=== PATIENT | male | born 1950 | race Caucasian/White ===

== ENCOUNTER → 2019-04-24 | Outpatient (CLI) | payer MEDICARE ==
[2019-04-24 10:39] LABS: African American GFR (CKD) >90 (>60 ml/min/1.73 sqM); Blood Urea Nitrogen 15 mg/dL (9-20); Non-African American GFR(CKD) >90 (>60 ml/min/1.73 sqM)
--- NOTE | 2019-04-24 12:52 | CT ---
EXAMINATION TYPE: CT pelvis w con DATE OF EXAM: 04/24/2019 COMPARISON: None. HISTORY: Prostate Cancer CT DLP: 1239 mGycm Automated exposure control for dose reduction was used. CONTRAST: Performed with IV Contrast, patient injected with 100 ml mL of Isovue 300. FINDINGS: Prostate gland normal in size with some central calcifications. Seminal vesicles appear within normal limits. No adjacent adenopathy seen. Bladder not greatly distended. No suspicious intraluminal mass or calculus. Oral contrast has not reached distal colon level. Few scattered diverticula in the left and sigmoid c olon. No suspicious small or large bowel dilatation. Low-lying cecum into the right pelvis with contr ast filled normal size appendix ascending from the cecal base. Subcentimeter simple appearing thin-wa lled cyst laterally lower pole of right kidney on axial series 5 image 8. There is moderate to severe mixed plaque in the abdominal aorta extending into iliac branch vessels. There is ectasia or aneurysmal change of the right and left common iliac arteries measuring up to 2.3 and 2.4 cm bilaterally on the left coronal image 57 and on the right coronal image 53. No significan t focal stenosis in common or external iliac arteries bilaterally. Osseous structures are demineralized. Some moderate anterior and lateral spurring in the mid lumbar s pine. Posterior left paracentral disc herniation L3-L4 level effaces the anterior thecal sac sagittal image 71. Mild/moderate narrowing and mild spurring of both hip joints. IMPRESSION: Metastatic cancer is not identified.
--- NOTE | 2019-04-24 13:48 | NM ---
EXAMINATION TYPE: NM bone scan whole body DATE OF EXAM: 04/24/2019 COMPARISON: CT pelvis 04/24/2019 HISTORY: Prostate cancer Delayed whole-body scanning was performed following the injection of 24.8 mCi Tc 99m MDP. Images acq uired 3 hours post injection. FINDINGS: Uptake involving the shoulders is nonspecific but typical degenerative change. Nonspecific uptake inv olving the right ankle and foot likely post arthritic or on the basis of remote trauma. There is subtle curvature of the spine with faint increased uptake in the thoracic region likely dege nerative. Abnormal uptake involving the mandible likely in the basis of periodontal disease. IMPRESSION: 1. Nonspecific uptake with no diagnostic evidence of metastases.
== END | disposition home or self-care (01) ==
LOC: RADNMMAIN 09:33
PROVIDERS: ATTEND Urology
DX: C61 Malignant neoplasm of prostate (principal)
CPT/HCPCS: 82565; 84520; 72193; 36415; 78306; A9503; Q9967

== ENCOUNTER 2019-05-06 15:55 | Inpatient (IN) | payer MEDICARE ==
[2019-05-06 16:06] LABS: Glucose,Whole Blood 134 mg/dL (75-99)
--- NOTE | 2019-05-06 16:29 | ED ---
General Adult HPI - General Chief complaint: Neuro Symptoms/Deficit Stated complaint: poss stroke Time Seen by Provider: 05/06/19 16:16 Source: patient, RN notes reviewed Mode of arrival: ambulatory Limitations: no limitations - History of Present Illness Initial comments: Patient is a pleasant 68-year-old male presenting to the emergency Department with complaints of speech problems. Onset of symptoms is not exactly known. Last known well was sometimes around noon. Symptoms were noticed around an hour or so ago. Patient had slurred speech and some confusion. Patient states he did not really notice symptoms much. Symptoms were more noticed by family. Symptoms have essentially resolved at this time. No history of similar symptoms previously. No difficulty walking or extremity weakness. - Related Data Home Medications Medication Instructions Recorded Confirmed Atorvastatin [Lipitor] 40 mg PO HS 05/06/19 05/06/19 Glimepiride [Amaryl] 2 mg PO BID 05/06/19 05/06/19 Pioglitazone [Actos] 30 mg PO DAILY 05/06/19 05/06/19 metFORMIN HCL ER [Glucophage Xr] 500 mg PO BID 05/06/19 05/06/19 Allergies Allergy/AdvReac Type Severity Reaction Status Date / Time No Known Allergies Allergy Unverified 05/06/19 16:45 Review of Systems ROS Statement: Those systems with pertinent positive or pertinent negative responses have been documented in the HPI. ROS Other: All systems not noted in ROS Statement are negative. Constitutional: Denies: fever Eyes: Denies: eye pain ENT: Denies: ear pain Respiratory: Denies: cough Cardiovascular: Denies: chest pain Endocrine: Denies: fatigue Gastrointestinal: Denies: abdominal pain Genitourinary: Denies: dysuria Musculoskeletal: Denies: back pain Skin: Denies: rash Neurological: Reports: as per HPI. Denies: headache, weakness Past Medical History Past Medical History: No Reported History History of Any Multi-Drug Resistant Organisms: None Reported Past Surgical History: No Surgical Hx Reported Past Psychological History: No Psychological Hx Reported Smoking Status: Never smoker Past Alcohol Use History: None Reported Past Drug Use History: None Reported General Exam Limitations: no limitations General appearance: alert, in no apparent distress Head exam: Present: normocephalic Eye exam: Present: normal appearance, PERRL, EOMI ENT exam: Present: normal oropharynx Neck exam: Present: normal inspection Respiratory exam: Present: normal lung sounds bilaterally Cardiovascular Exam: Present: regular rate, normal rhythm GI/Abdominal exam: Present: soft. Absent: tenderness Extremities exam: Present: normal inspection. Absent: pedal edema, calf tenderness Neurological exam: Present: alert, oriented X3, CN II-XII intact. Absent: motor sensory deficit Expanded Neurological exam: Present: protecting the airway Patient oriented to: Present: person, place, time Speech: Present: fluid speech Cranial nerves: EOM's Intact: Normal, Facial Sensation: Normal Sensory exam: Upper Extremity Light Touch: Normal, Lower Extremity Light Touch: Normal Motor strength exam: RUE: 5, LUE: 5, RLE: 5, LLE: 5 Eye Response: (4) open spontaneously Motor Response: (6) obeys commands Verbal Response: (5) oriented Psychiatric exam: Present: normal affect, normal mood Skin exam: Present: normal color Course Vital Signs 05/06/19 05/06/19 16:06 16:14 Temperature 97.8 F Pulse Rate 75 78 Respiratory 18 18 Rate Blood Pressure 161/80 161/80 O2 Sat by Pulse 99 97 Oximetry EKG Findings - EKG Comments: EKG Findings:: Normal sinus rhythm at 76. AK 180. QRS 106. QT 398. QTC 447. Normal axis. Normal QRS. Borderline lateral ST depression. Medical Decision Making - Medical Decision Making Case was discussed with Dr. Long, who will admit covering for Dr. Cordon. Patient reevaluated. Patient and family updated. Patient remains symptom-free. - Lab Data Result diagrams: 05/06/19 16:28 Lab Results 05/06/19 05/06/19 05/06/19 Range/Units 16:04 16:28 16:28 Sodium 139 (137-145) mmol/L Potassium 4.6 (3.5-5.1) mmol/L Chloride 105 (98-107) mmol/L Carbon Dioxide 26 (22-30) mmol/L Anion Gap 8 mmol/L BUN 18 (9-20) mg/dL Creatinine 0.58 L (0.66-1.25) mg/dL Est GFR (CKD-EPI)AfAm >90 (>60 ml/min/1.73 sqM) Est GFR (CKD-EPI)NonAf >90 (>60 ml/min/1.73 sqM) Glucose 124 H (74-99) mg/dL POC Glucose (mg/dL) 134 H (75-99) mg/dL POC Glu Mounter Smoking Pipe ID Carlos Walters Calcium 9.4 (8.4-10.2) mg/dL Total Bilirubin 0.5 (0.2-1.3) mg/dL AST 21 (17-59) U/L ALT 11 (4-49) U/L Alkaline Phosphatase 80 (38-126) U/L Troponin I 0.118 H* (0.000-0.034) ng/mL Total Protein 6.9 (6.3-8.2) g/dL Albumin 4.3 (3.5-5.0) g/dL - Radiology Data Radiology results: report reviewed (Computed tomography scan the brain shows no acute process) Disposition Clinical Impression: Transient cerebral ischemia Disposition: ADMITTED IP TO THIS HOSP Is patient prescribed a controlled substance at d/c from ED?: No Referrals: Shiv Cordon MD [Primary Care Provider] - 1-2 days Decision Time: 17:12
[2019-05-06 16:47] LABS: Basophils % (A) 0 %; Eosinophils # (A) 0.1 k/uL (0-0.7); Eosinophils % (A) 2 %; HCT 44.2 % (39.0-53.0); HGB 14.4 gm/dL (13.0-17.5); Lymphocytes # (A) 1.9 k/uL (1.0-4.8); Lymphocytes % (A) 28 %; MCH 30.7 pg (25.0-35.0); MCHC 32.5 g/dL (31.0-37.0); MCV 94.2 fL (80.0-100.0); Mean Platelet Volume 8.4; Monocytes # (A) 0.4 k/uL (0-1.0); Monocytes % (A) 6 %; Neutrophils % (A) 60 %; Platelet Count 270 k/uL (150-450); RDW 13.2 % (11.5-15.5); WBC 6.7 k/uL (3.8-10.6)
[2019-05-06 16:50] LABS: ALT 11 U/L (4-49); AST 21 U/L (17-59); African American GFR (CKD) >90 (>60 ml/min/1.73 sqM); Albumin 4.3 g/dL (3.5-5.0); Alkaline Phosphatase 80 U/L (38-126); Anion Gap 8 mmol/L; Blood Urea Nitrogen 18 mg/dL (9-20); Calcium 9.4 mg/dL (8.4-10.2); Carbon Dioxide 26 mmol/L (22-30); Chloride 105 mmol/L (98-107); Glucose 124 mg/dL (74-99); Non-African American GFR(CKD) >90 (>60 ml/min/1.73 sqM); Potassium 4.6 mmol/L (3.5-5.1); Sodium 139 mmol/L (137-145); Total Bilirubin 0.5 mg/dL (0.2-1.3); Total Protein 6.9 g/dL (6.3-8.2)
--- NOTE | 2019-05-06 16:58 | CT ---
EXAMINATION TYPE: CT brain wo con for TPA DATE OF EXAM: 05/06/2019 COMPARISON: None HISTORY: Slurred speech. CT DLP: 1160.6 mGycm Automated exposure control for dose reduction was used. There is some cerebral cortical atrophy. There is no mass effect nor midline shift. There is no sign of intracranial hemorrhage. The calvarium is intact. There is 2 cm mucous retention cyst in the sphen oid sinus. IMPRESSION: Mild atrophy. No acute intracranial abnormality.
[2019-05-06 17:01] LABS: Partial Thromboplastin Time 22.1 sec (22.0-30.0); Prothrombin Time 10.7 sec (9.0-12.0)
[2019-05-06] MEDS ORDERED: ASPIRIN 325 MG TAB PO STA (17:09)
[2019-05-06] MEDS ORDERED: ATORVASTATIN 40 MG TAB PO SCH (17:15)
--- NOTE | 2019-05-06 17:41 | CT ---
EXAMINATION TYPE: CT angio head neck DATE OF EXAM: 05/06/2019 COMPARISON: None HISTORY: Slurred speech CT DLP: 575.1 mGycm Automated exposure control for dose reduction was used. CONTRAST: Performed with IV Contrast, patient injected with 65 mL of Isovue 370. There are 3-D post processed images. There is normal branching pattern of the great vessels on the aortic arch. Aortic arch measures up to 3.8 cm in diameter. There is bilateral arterial flow in the subclavian arteries. There is arterial f low in the common internal and external carotid arteries bilaterally. There is mild plaque formation at the carotid artery bifurcations. There is stenosis less than 15%. There is arterial flow in both v ertebral arteries. There is no evidence of carotid or vertebral artery aneurysm or dissection. There is arterial flow in the vertebrobasilar artery system. There is arterial flow in the anterior m iddle and posterior cerebral arteries. There is no sign of intracranial aneurysm or neovascularity. T here is normal contrast opacification of the venous sinuses. I see no evidence of intracranial hemody namic arterial stenosis. IMPRESSION: Negative exam. No evidence of any hemodynamic stenosis of the intracranial arteries or the carotid an d vertebral arteries.
--- NOTE | 2019-05-06 17:46 | XR ---
EXAMINATION TYPE: XR chest 2V DATE OF EXAM: 05/06/2019 COMPARISON: 12/28/2008 HISTORY: Altered mental status. Weakness TECHNIQUE: FINDINGS: Heart is normal. There are sternal wires. There is slight blunting of the posterior costophrenic angl es.. There is no heart failure. Bony thorax is intact. There are no hilar masses. IMPRESSION: Small pleural effusions are improved compared to old exam. Normal heart. No heart failure seen.
[2019-05-06] MEDS: SODIUM CHLORIDE 0.9% 1,000 ML IV SCH (17:55)
[2019-05-07] MEDS: SODIUM CHLORIDE 0.9% 1,000 ML IV SCH ×2 (04:39→12:45)
[2019-05-07 05:30] LABS: Cholesterol 139 mg/dL (<200); HDL Cholesterol 35 mg/dL (40-60); LDL Cholesterol,Calculated 79 mg/dL (0-99); Triglycerides 124 mg/dL (<150)
[2019-05-07] MEDS ORDERED: ASPIRIN 325 MG TAB PO SCH (09:00)
--- NOTE | 2019-05-07 11:00 | ECHOF ---
Referral Reason:Thrombus MEASUREMENTS -------- HEIGHT: 152.4 cm WEIGHT: 86.2 kg BP: RVIDd: 3.5 cm (< 3.3) IVSd: 1.4 cm (0.6 - 1.1) LVIDd: 5.9 cm (3.9 - 5.3) LVPWd: 1.6 cm (0.6 - 1.1) IVSs: 1.6 cm LVIDs: 4.8 cm LVPWs: 1.7 cm LA Diam: 4.9 cm (2.7 - 3.8) LAESV Index (A-L): 40.85 ml/m Ao Diam: 4.2 cm (2.0 - 3.7) AV Cusp: 1.6 cm (1.5 - 2.6) LA Diam: 5.2 cm (2.7 - 3.8) MV EXCURSION: 25.770 mm (> 18.000) MV EF SLOPE: 102 mm/s (70 - 150) EPSS: 1.4 cm MV E Aiden: 0.86 m/s MV DecT: 146 ms MV A Aiden: 0.50 m/s MV E/A Ratio: 1.72 RAP: 5.00 mmHg RVSP: 14.77 mmHg FINDINGS -------- Sinus rhythm. This was a techncally difficult study with suboptimal views, , Lumason utilized for enhancement of im ages. The left ventricular size is normal. There is mild concentric left ventricular hypertrophy. Overa ll left ventricular systolic function is moderate-severely impaired with, an EF between 30 - 35 %. Inferior basal Hypokinesis Septal Hypokinesis The right ventricle is normal in size. The left atrium is markedly dilated. LA is severely dilated >40 ml/m2 The right atrial size is normal. 5.0mg OF Lumason UTLIZED: 2 OR MORE WALL SEGMENTS NOT VISUALIZED. There is mild aortic valve sclerosis. There is no evidence of aortic regurgitation. Mild mitral annular calcification present. Mild mitral regurgitation is present. Mild tricuspid regurgitation present. Right ventricular systolic pressure is normal at < 35 mmHg. There is no evidence of pulmonary hypertension. Trace/mild (physiologic) pulmonic regurgitation. The aortic root size is normal. There is no pericardial effusion. CONCLUSIONS -------- 1. Sinus rhythm. 2. This was a techncally difficult study with suboptimal views, , Lumason utilized for enhancement of images. 3. The left ventricular size is normal. 4. There is mild concentric left ventricular hypertrophy. 5. Overall left ventricular systolic function is moderate-severely impaired with, an EF between 30 - 35 %. 6. Inferior basal Hypokinesis 7. Septal Hypokinesis 8. The right ventricle is normal in size. 9. The left atrium is markedly dilated. 10. LA is severely dilated >40 ml/m2 11. The right atrial size is normal. 12. 5.0mg OF Lumason UTLIZED: 2 OR MORE WALL SEGMENTS NOT VISUALIZED. 13. There is mild aortic valve sclerosis. 14. Mild mitral annular calcification present. 15. Mild mitral regurgitation is present. 16. Mild tricuspid regurgitation present. 17. Right ventricular systolic pressure is normal at < 35 mmHg. 18. There is no evidence of pulmonary hypertension. 19. Trace/mild (physiologic) pulmonic regurgitation. 20. The aortic root size is normal. 21. There is no pericardial effusion. CR[employer]LING PRESS OPERATOR: Sonya Fernández RDCS
--- NOTE | 2019-05-07 11:40 | CONS ---
CONSULTATION Mr. Sampson is a 68-year-old gentleman who is seen for cardiac evaluations. Patient's medical records reviewed. Patient came to the hospital with a history of slurred speech and confusion. He did not really notice much symptoms, but then symptoms were noticed by family and by the time he came to the emergency room, the patient's symptoms were resolved. He did not have any headache, nausea, vomiting or seizures. Patient has a known history of coronary artery disease with a prior history of a bypass about 10 years ago, history of diabetes. Patient does not follow any cardiology. He did not have any stress test. He is physically and functionally independent and denies any chest pain with routine activity. PAST MEDICAL HISTORY: Includes a history of coronary artery bypass surgery. SOCIAL HISTORY: Patient is a never smoker. In the emergency room, patient's blood pressure was mildly elevated. PHYSICAL EXAMINATION: At present reveals a 68-year-old gentleman who does not appear to be in any acute distress. Patient's blood pressure is 128/65 mmHg, heart rate is 70 per minute. HEENT examination is negative. Neck is supple. There is no increase in jugular venous pressure. Both the carotid pulses are felt. There is no bruit. Chest is symmetrical. Heart, the PMI is not felt. First and second heart sounds are normal. Lungs are clinically clear to auscultation and percussion. Abdomen is negative. Extremities, peripheral pulsations are 2+. EKG shows normal sinus rhythm with mild ST changes in the lateral leads. Patient's 3 troponins are identical suggestive of chronic myocardial injury without any definite evidence of acute coronary syndrome. Patient's echocardiogram reveals a septal and apical and inferior wall hypokinesia with ejection fraction of 30%-35%. Patient's clinical access shows one episode of nonsustained ventricular tachycardia. FINAL IMPRESSION: 1. This patient has presented with the symptoms suggestive for TIA. Patient's CT scan and carotid angiogram were normal. 2. Patient has a stable CAD with a prior history of coronary artery bypass surgery. Echocardiogram is suggestive of ischemic cardiomyopathy with ejection fraction of 30%-35%. The patient had 1 run of nonsustained VT. There is no evidence of acute coronary syndrome. RECOMMENDATIONS: Patient will await for neuro evaluation. If the MRI shows any cortical ischemic changes, we will do HANNAH to rule out any cardiac source of emboli. I will add Entresto 24/26 mg twice a day and metoprolol succinate 25 mg daily. Patient should be evaluated with a stress test as outpatient and follow severely with echocardiogram to see if there is any improvement in the LV systolic function. JENA / IVANIA: [id number] /
[2019-05-07 11:46] LABS: Glucose,Whole Blood 110 mg/dL (75-99)
[2019-05-07] MEDS: INSULIN ASPART (NovoLOG) 100 UNIT/ML VIAL SQ SCH ×3 (12:02→21:13)
[2019-05-07] MEDS: SACUBITRIL/VALSARTAN 24 MG-26 MG TABLET PO SCH ×2 (12:05→20:20)
[2019-05-07] MEDS: METOPROLOL SUCCINATE (ER) 25 MG TAB.ER.24H PO SCH (12:05)
--- NOTE | 2019-05-07 13:36 | P.CNNES ---
History of Present Illness Consult date: 05/07/19 Requesting physician: Audi Caraballo Reason for Consult: TIA History of Present Illness: Patient is a 68-year-old male arrived to the hospital yesterday at 3:55 PM for admitted to the hospital for speech problems. Patient states that yesterday at around noon, he had an episode of slurring words. He states that it was not happening all the time. After he was speaking a sentence, and the last word world "screw up". He described it as could not think the last word of the sentence. He knew what it was but he could not see it out. It at lasted for less than an hour. There was no associated numbness tingling focal weakness facial droop, visual issues, problem with balance or headache. He came to ER. When he arrived his blood pressure was 161/80, pulse rate 75 temperature 97.8. Patient states his symptoms have all resolved. He never had any history of TIA or CVA. I tried to call the patient's son several times, but he did not picker packer the phone. Left voicemail to call me back, to get more collateral history. CT head showed mild atrophy, no acute change. EKG with normal sinus rhythm, ST and T-wave abnormality, consider inferolateral ischemia. CTA of head and neck showed no hemodynamically significant stenosis of the intracranial arteries or the carotid and vertebral arteries. Chest x-ray showed small pleural effusions. 2-D echo showed sinus rhythm. EF is 30-35%. Inferior basal hypokinesis. Septal hypokinesis. Left atrium is moderately dilated. The aortic root size is normal. Patient's troponin are mildly elevated. Patient's total cholesterol is 139, LDL 79, HDL 35 and triglycerides 124. Patient has history of hypertension, diabetes for the last 10+ years and hyperlipidemia. Patient never smoked tobacco but he does smoke pot every day. Review of Systems As above in detail. Otherwise all 14 point review of systems unremarkable. Past Medical History Past Medical History: Asthma, Cancer, CVA/TIA, Diabetes Mellitus, Deep Vein Thrombosis (DVT), Eye Disorder, Hypertension, Myocardial Infarction ([place]), Prostate Disorder Additional Past Medical History / Comment(s): Pt states, "I had a heart attack about 12 years ago." Prostate cancer diagnosed 03/2019, bilateral cataract surgery 2018, Last Myocardial Infarction Date:: 2007 History of Any Multi-Drug Resistant Organisms: None Reported Past Surgical History: Adenoidectomy, Coronary Bypass/CABG, Heart Catheterization, Tonsillectomy Past Anesthesia/Blood Transfusion Reactions: No Reported Reaction Past Psychological History: No Psychological Hx Reported Smoking Status: Former smoker Past Alcohol Use History: None Reported Past Drug Use History: Marijuana Additional Drug Use History / Comment(s): Pt states that he "smoke marijuana daily" Unable to determine how much marijuana is smoked during the day. - Past Family History Father Family Medical History: Myocardial Infarction ([place]) Additional Family Medical History / Comment(s): Father at 49 of an [place]. Mother Family Medical History: Myocardial Infarction ([place]) Additional Family Medical History / Comment(s): Mother at 49 of a [place]. Sister(s) Family Medical History: Cancer Additional Family Medical History / Comment(s): Pt states sister had breast ca ncer at 50. Medications and Allergies Home Medications Medication Instructions Recorded Confirmed Type Atorvastatin [Lipitor] 40 mg PO HS 05/06/19 05/06/19 History Glimepiride [Amaryl] 2 mg PO BID 05/06/19 05/06/19 History Pioglitazone [Actos] 30 mg PO DAILY 05/06/19 05/06/19 History metFORMIN HCL ER [Glucophage Xr] 500 mg PO BID 05/06/19 05/06/19 History Allergies Allergy/AdvReac Type Severity Reaction Status Date / Time No Known Allergies Allergy Unverified 05/06/19 16:45 Physical Examination - Vital Signs Vital Signs: Vital Signs Temp Pulse Pulse Resp BP BP Pulse Ox 05/07/19 08:00 98.0 F 69 20 129/72 96 05/07/19 04:00 98.5 F 69 16 128/65 95 05/07/19 00:00 98.5 F 69 14 126/60 97 05/06/19 22:11 98.3 F 78 18 152/84 99 05/06/19 22:00 98.3 F 78 18 152/84 99 05/06/19 21:05 70 18 148/84 98 05/06/19 17:52 70 18 151/80 97 05/06/19 16:14 78 18 161/80 97 05/06/19 16:06 97.8 F 75 18 161/80 99 Intake and Output 05/06/19 05/07/19 05/07/19 22:59 06:59 14:59 Intake Total 450 Output Total 240 0 Balance 210 0 Intake: Intake, IV Titration 450 Amount Sodium Chloride 0.9% 1, 450 000 ml @ 100 mls/hr IV . Q10H [facility] Rx#:[id number] Output: Urine 240 0 Other: Voiding Method Toilet Urinal # Voids 1 0 Weight 86.5 kg 86.5 kg On examination patient is an elderly male, in no distress. Patient is alert and awake fully oriented. Speech and leg which functions are normal. Attention and concentration fund of knowledge is adequate. On cranial nerve examination pupils are round and reacting to light, visual weems are full, face is symmetric, tongue protrudes in midline. Palatal elevation and sensation norm al muscle strength is normal in the arms and legs distally and proximally reflexes are diminished and plantars downgoing. Sensory touch is equal with no neglect. No ataxia for [id number] testing, tone and bulk of muscles normal. No carotid bruit or murmur, peripheral pulses present. Results - Laboratory Findings CBC and BMP: 05/06/19 16:28 05/06/19 16:28 Abnormal Lab Findings: Abnormal Labs 05/06/19 05/06/19 05/06/19 16:04 16:28 16:28 Creatinine 0.58 L Glucose 124 H POC Glucose (mg/dL) 134 H Troponin I 0.118 H* HDL Cholesterol 05/06/19 05/07/19 05/07/19 22:18 04:48 04:48 Creatinine Glucose POC Glucose (mg/dL) Troponin I 0.139 H* 0.124 H* HDL Cholesterol 35 L 05/07/19 11:33 Creatinine Glucose POC Glucose (mg/dL) 110 H Troponin I HDL Cholesterol Assessment and Plan Assessment: * 68-year-old male admitted with an episode of speech difficulty lasting for less then one hour, and then resolved. No associated other focal neurological symptoms. Patient's symptoms are somewhat atypical, as he would speak normally, only forgetting the last word of the sentence, which is atypical for TIA to manifest with symptoms for the "last word of sentence". Tried to call patient's son for collateral history, but was not available. * Diabetes * Hypertension * Abnormal 2-D echo with CHF, left atrial dilation. Elevated cardiac enzymes. Rule out cardioembolic source. * THC user. Plan: * Patient has been started on aspirin 81 mg daily and Lipitor 80 mg. * Agree with checking HANNAH to rule out any embolic source. * Continue telemetry monitoring to rule out paroxysmal atrial fibrillation. * Discussed with cardiology team in detail. * MRI of the brain will not change the management. Patient still needs workup for TIA.
--- NOTE | 2019-05-07 14:51 | P.HPIM ---
History of Present Illness H&P Date: 05/07/19 Chief Complaint: slurred speech On this is a 68-year-old male patient of Dr. Cordon with past medical history of diabetes mellitus type 2, hyperlipidemia, DVT, myocardial infarction at age 58 status post 4 vessel CABG, active daily marijuana use, prostate cancer diagnosed March 2019, no history of CVA nor TIA. Patient gives history that he was watching TV didn't realize he was driving trouble speaking until his son called him on the phone and he could hardly talk to him. He also had some mild confusion. Symptoms lasted until he arrived to the hospital. He states he has been sick for about 3 weeks with on and off diarrhea. His last episode was yesterday. He denies having any chest pain, no shortness of breath, no dizziness or lightheadedness. No history of obstructive sleep apnea. Patient came into [facility] emergency center for evaluation. CAT scan of the head showed mild atrophy, no acute change. EKG was in normal sinus rhythm with ST-T wave abnormality consider inferior lateral ischemia. CT of the head and neck showed no hemodynamically significant stenosis of the intracranial arteries are carotid vertebral arteries. Chest x-ray showed small pleural effusions. Echocardiogram reveals EF of 30-35%, inferior basal h ypokinesia, septal hypokinesia, left atrium is moderately dilated. Cholesterol 139, LDL 79, HDL 35, triglycerides 124. Patient placed on the cardiac stepdown unit and consult in place for neurology and cardiology. Repeat troponins have been 0.139 and 0.124. Review of Systems Constitutional: Denies anorexia, Denies chills, Denies fatigue, Denies fever, Denies lethargy, Denies malaise, Denies poor appetite, Denies weight loss Eyes: denies blurred vision, denies pain Ears, nose, mouth and throat: Denies dental pain, Denies dysphagia, Denies headache, Denies nasal congestion, Denies nasal discharge, Denies sore throat, Denies vertigo Cardiovascular: Denies chest pain, Denies dyspnea on exertion, Denies lightheadedness, Denies shortness of breath, Denies syncope Respiratory: Reports cough, Denies cough with sputum, Denies dyspnea, Denies excessive sputum, Denies hemoptysis, Denies home oxygen, Denies respiratory infections, Denies wheezing Gastrointestinal: Denies abdominal pain, Denies diarrhea, Denies loss of appetite, Denies nausea, Denies vomiting Genitourinary: Denies dysuria, Denies urinary frequency, Denies urinary retention Musculoskeletal: Denies frequent falls, Denies gait dysfunction, Denies muscle weakness, Denies myalgias Integumentary: Denies pruritus, Denies rash, Denies wounds Neurological: Reports change in mentation, Reports change in speech, Denies headaches, Denies memory loss, Denies seizures, Denies syncope, Denies vertigo, Denies weakness Psychiatric: Denies anxiety, Denies depression Endocrine: Denies fatigue, Denies weight change Past Medical History Past Medical History: Asthma, Cancer, CVA/TIA, Diabetes Mellitus, Deep Vein Thrombosis (DVT), Eye Disorder, Hypertension, Myocardial Infarction (OK), Prostate Disorder Additional Past Medical History / Comment(s): Pt states, "I had a heart attack about 12 years ago." Prostate cancer diagnosed 03/2019, bilateral cataract surgery 2018, Last Myocardial Infarction Date:: 2007 History of Any Multi-Drug Resistant Organisms: None Reported Past Surgical History: Adenoidectomy, Coronary Bypass/CABG, Heart Catheterization, Tonsillectomy Past Anesthesia/Blood Transfusion Reactions: No Reported Reaction Past Psychological History: No Psychological Hx Reported Past Alcohol Use History: None Reported Additional Past Alcohol Use History / Comment(s): Patient states that he only smoked cigarettes as a child. He is smoking marijuana on a daily basis since he was 28 years old. He denies any alcohol use or illicit drug use. Patient lives at home with his son. He does not have a cane, walker, no CPAP, no O2 at home. Past Drug Use History: Marijuana Additional Drug Use History / Comment(s): Pt states that he "smoke marijuana daily" Unable to determine how much marijuana is smoked during the day. - Past Family History Father Family Medical History: Myocardial Infarction ([place]) Additional Family Medical History / Comment(s): Father at 49 of an [place]. Mother Family Medical History: Myocardial Infarction ([place]) Additional Family Medical History / Comment(s): Mother at 59 of a [place]. Sister(s) Family Medical History: Cancer Additional Family Medical History / Comment(s): Pt states sister had breast cancer at 50. Patient has a second sister with no major medical problems. Patient has 2 sons with no major medical problems. He does not have any daughters. Medications and Allergies Home Medications Medication Instructions Recorded Confirmed Type Atorvastatin [Lipitor] 40 mg PO HS 05/06/19 05/06/19 History Glimepiride [Amaryl] 2 mg PO BID 05/06/19 05/06/19 History Pioglitazone [Actos] 30 mg PO DAILY 05/06/19 05/06/19 History metFORMIN HCL ER [Glucophage Xr] 500 mg PO BID 05/06/19 05/06/19 History Allergies Allergy/AdvReac Type Severity Reaction Status Date / Time No Known Allergies Allergy Unverified 05/06/19 16:45 Physical Exam Vitals: Vital Signs Temp Pulse Pulse Resp BP BP Pulse Ox 05/07/19 04:00 98.5 F 69 16 128/65 95 05/07/19 00:00 98.5 F 69 14 126/60 97 05/06/19 22:11 98.3 F 78 18 152/84 99 05/06/19 22:00 98.3 F 78 18 152/84 99 05/06/19 21:05 70 18 148/84 98 05/06/19 17:52 70 18 151/80 97 05/06/19 16:14 78 18 161/80 97 05/06/19 16:06 97.8 F 75 18 161/80 99 Intake and Output 05/06/19 05/07/19 05/07/19 22:59 06:59 14:59 Intake Total 450 Output Total 240 Balance 210 Intake: Intake, IV Titration 450 Amount Sodium Chloride 0.9% 1, 450 000 ml @ 100 mls/hr IV . Q10H [facility] Rx#:[id number] Output: Urine 240 Other: Voiding Method Toilet Urinal # Voids 1 Weight 86.5 kg 86.5 kg Gen: This is a 68-year-old male. Patient is resting in bed and appears to be comfortable and in no acute distress. HEENT: Head is atraumatic, normocephalic. Pupils equal, round. Sclerae is anicteric. NECK: Supple. No JVD. No lymphadenopathy. No thyromegaly. No carotid bruit. LUNGS: Clear to auscultation. No wheezes or rhonchi. No intercostal retractions. HEART: Regular rate and rhythm. No murmur. ABDOMEN: Soft. Bowel sounds are present. No masses. No tenderness. EXTREMITIES: No pedal edema. No calf tenderness. NEUROLOGICAL: Patient is awake, alert and oriented x3. Cranial nerves 2 through 12 are grossly intact. No neglect of the upper extremities. Touch sensation is equal bilateral extremities. Results CBC & Chem 7: 05/06/19 16:28 05/08/19 05:31 Labs: Abnormal Lab Results - Last 24 Hours (Table) 05/06/19 05/06/19 05/06/19 Range/Units 16:04 16:28 16:28 Creatinine 0.58 L (0.66-1.25) mg/dL Glucose 124 H (74-99) mg/dL POC Glucose (mg/dL) 134 H (75-99) mg/dL Troponin I 0.118 H* (0.000-0.034) ng/mL HDL Cholesterol (40-60) mg/dL 05/06/19 05/07/19 05/07/19 Range/Units 22:18 04:48 04:48 Creatinine (0.66-1.25) mg/dL Glucose (74-99) mg/dL POC Glucose (mg/dL) (75-99) mg/dL Troponin I 0.139 H* 0.124 H* (0.000-0.034) ng/mL HDL Cholesterol 35 L (40-60) mg/dL Thrombosis Risk Factor Assmnt - DVT/VTE Prophylaxis DVT/VTE Prophylaxis: Pharmacologic Prophylaxis ordered - Choose All That Apply Any of the Below Risk Factors Present?: Yes Each Factor Represents 1 point: Obesity (BMI >25) Other Risk Factors: Yes Each Risk Factor Represents 2 Points: Age 61-74 years Thrombosis Risk Factor Assessment Total Risk Factor Score: 3 Thrombosis Risk Factor Assessment Level: Moderate Risk Assessment and Plan Plan: 1. Episode of speech difficulty, possible TIA. Consult with neurology and cardiology appreciated. Continue aspirin 81 mg daily, Lipitor increased to 80 mg daily. MRI of the brain and possible HANNAH to rule out embolic source. 2. History of coronary artery disease with previous CABG. Aspirin 81 mg daily, Atorvastatin 80 mg daily. 3. Ischemic cardiomyopathy with ejection fraction of 30-35%. Cardiology consult. Toprol XL 25 mg daily and Entresto twice daily. 4. Diabetes mellitus type 2. Novolog scale. Hold actos, glimepiride and metformin. 5. Hyperlipidemia. Atorvastin. 6. Daily marijuana use. 7. Prostate cancer diagnosed March 2019. 8. History of DVT. 9. DVT prophylaxis. Heparin subcu. 10. GI prophylaxis. Pepcid. Patient will be admitted to the hospital for a minimum of 2 night stay. Discharge plan: home Impression and plan of care have been directed as dictated by the signing physician. Jennifer Carvalho nurse practitioner acting as scribe for signing physician.
--- NOTE | 2019-05-07 15:08 | MR ---
EXAMINATION TYPE: MR brain wo con DATE OF EXAM: 05/07/2019 COMPARISON: CT brain from yesterday. HISTORY: Slurred speech x 1 hour, TIA vs CVA TECHNIQUE: Multiplanar, multisequence imaging of the brain and brainstem is performed without IV cont rast. FINDINGS: Diffusion weighted images demonstrate increased signal on diffusion-weighted images with diminished s ignal on ADC mapping involving the subcortical aspect of the posterior left frontal lobe just anterio r to the central sulcus axial image 176 with increased signal on T2-weighted images. There are additi onal punctate areas of increased signal on diffusion weighted images with suspected diminished signal ADC mapping for reference left septal lobe axial image 136 and near left parietal temporal junction axial image 128. No areas of acute infarct right hemisphere identified. There is no worrisome extra-axial fluid collection. Background diffuse ventricular and sulcal promine nce. Few foci of T2 hyperintensity seen throughout the white matter bilaterally. Midline structures demonstrate normal morphology. The craniocervical junction appears within normal limits. Normal vascular flow voids are present. Mucous retention cyst or polyp in the anterior left s phenoid sinus axial image 8 is redemonstrated along with smaller mucous retention cyst or polyp in th e inferior anterior right maxillary sinus axial image 2 otherwise paranasal sinuses are clear. Globes are intact bilaterally. IMPRESSION: 1. Scattered small areas of acute infarct involving the left brain parenchyma as detailed above, larg est involves subcortical level of the posterior left frontal lobe at level of the polanco radiata. 2. Background mild to moderate diffuse cerebral atrophy and mild chronic small vessel ischemic change along with chronic paranasal sinus disease.
[2019-05-07 16:55] LABS: Glucose,Whole Blood 212 mg/dL (75-99)
[2019-05-07 18:26] LABS: Hemoglobin A1C 6.9 % (4.0-6.0)
[2019-05-07 20:55] LABS: Glucose,Whole Blood 176 mg/dL (75-99)
[2019-05-07] MEDS ORDERED: ATORVASTATIN 80 MG TAB PO SCH (21:00)
[2019-05-08 00:39] VITALS: RESP 16
[2019-05-08 06:04] LABS: Glucose,Whole Blood 140 mg/dL (75-99)
[2019-05-08] MEDS: INSULIN ASPART (NovoLOG) 100 UNIT/ML VIAL SQ SCH ×4 (06:44→21:42)
[2019-05-08 06:54] LABS: African American GFR (CKD) >90 (>60 ml/min/1.73 sqM); Anion Gap 6 mmol/L; Blood Urea Nitrogen 12 mg/dL (9-20); Calcium 8.6 mg/dL (8.4-10.2); Carbon Dioxide 23 mmol/L (22-30); Chloride 107 mmol/L (98-107); Cholesterol 146 mg/dL (<200); Glucose 130 mg/dL (74-99); HDL Cholesterol 36 mg/dL (40-60); LDL Cholesterol,Calculated 88 mg/dL (0-99); Non-African American GFR(CKD) >90 (>60 ml/min/1.73 sqM); Potassium 4.4 mmol/L (3.5-5.1); Sodium 136 mmol/L (137-145); Triglycerides 109 mg/dL (<150)
[2019-05-08] MEDS: FAMOTIDINE 20 MG TAB PO SCH (09:04)
[2019-05-08] MEDS: ASPIRIN 81 MG PO SCH (09:04)
[2019-05-08] MEDS: METOPROLOL SUCCINATE (ER) 25 MG TAB.ER.24H PO SCH (09:04)
[2019-05-08] MEDS: SACUBITRIL/VALSARTAN 24 MG-26 MG TABLET PO SCH ×2 (09:05→21:41)
[2019-05-08] MEDS ORDERED: fentaNYL (PF) 50 MCG/ML 2 ML AMP ONE (11:08)
[2019-05-08] MEDS ORDERED: SODIUM CHLORIDE 0.9% 500 ML 500 ML IV ONE (11:28)
[2019-05-08] MEDS: BENZOCAINE SPRAY 1 CAN TOPICAL ONE ×2 (11:33→11:38)
[2019-05-08] MEDS ORDERED: MIDAZOLAM 2 MG/2 ML VIAL IVP ONE ×2 (11:38→11:42)
[2019-05-08] MEDS ORDERED: fentaNYL (PF) 50 MCG/ML 2 ML AMP IVP ONE (11:48)
--- NOTE | 2019-05-08 12:20 | ECHOT ---
TRANSESOPHAGEAL ECHOCARDIOGRAM Mr. Sampson is a 68-year-old gentleman who came with a history suggestive of a stroke. Patient's MRI is suggestive of embolic stroke. Patient has a known history of coronary artery disease. Echocardiogram shows ischemic cardiomyopathy. This transesophageal echocardiogram was performed to rule out any cardiac source of emboli. PROCEDURE: Patient was given intravenous sedation with Versed and fentanyl and transesophageal echocardiogram was performed without any complications. The left ventricular chamber is normal in size. There is evidence of inferior and septal hypokinesia with estimated ejection fraction of 35%. There is no definite evidence of thrombus in the left ventricular apex. Left atrium is mildly enlarged. Left atrial appendage is clear without any evidence of thrombus. Pulmonary vein flow shows systolic and diastolic velocities are identical. There is a mild tricuspid regurgitation noted. Aortic valve is sclerotic. No aortic regurgitation is noted. Interatrial septum is intact. There is no evidence of PFO by saline contrast study. Descending thoracic aorta shows smoke in the aorta, smoke in the aortic suggestive of low blood flow and there is a diffuse arthrosclerotic plaque noted in the descending thoracic aorta. IMPRESSION: 1. There is evidence of inferior and septal hypokinesia with estimated ejection fraction of 35%. 2. There is no definite evidence of thrombus in the left ventricle or left atrial appendage. 3. There is a mild mitral regurgitation is noted. 4. There is no evidence of atrial septal defect or any patent foramen ovale with a [id number] shunt for the diffuse atherosclerotic plaque noted in the descending thoracic aorta. RECOMMENDATIONS: This patient has a history suggestive of embolic stroke, exact etiology undetermined. However, patient does have evidence of ischemic cardiomyopathy with impaired left ventricular systolic function. One cannot completely rule out cardiac source of emboli and empiric treatment with anticoagulation may be helpful. We will also suggest the patient to have event monitor and may need subsequently the loop recorder. MMODL / IJN: [id number] / MTDD
[2019-05-08 12:25] LABS: Glucose,Whole Blood 131 mg/dL (75-99)
--- NOTE | 2019-05-08 12:29 | PN ---
PROGRESS NOTE This patient is admitted with a stroke. Patient's MRI is suggestive of a cardiac embolic stroke. Exact source of cardiac emboli is unclear. Transesophageal echocardiogram was performed today. There is no definite evidence of thrombus in the left atrial appendage. There is no evidence of thrombus in the left ventricular apex. However, patient does have ischemic cardiomyopathy with impaired left ventricular systolic function and one cannot completely exclude a possibility of thrombus from the left ventricular dysfunction. Paroxysmal atrial fibrillation also needs to be ruled out. We will at present recommend to treat empirically with Eliquis 5 mg b.i.d. without any aspirin and we will recommend to do 30-day event monitor. Patient will be subsequently followed in the office and if the left ventricular dysfunction persists, he will need a further evaluation with a cardiac catheterization as well as possible AICD placement. JENA / JULIANNEN: [id number] /
[2019-05-08] MEDS: SODIUM CHLORIDE 0.9% 1,000 ML IV SCH (12:30)
[2019-05-08] MEDS ORDERED: SODIUM CHLORIDE 0.9% 1,000 ML IV SCH (13:00)
--- NOTE | 2019-05-08 13:45 | P.PN ---
Subjective Progress Note Date: 05/08/19 On this is a 68-year-old male patient of Dr. Cordon with past medical history of diabetes mellitus type 2, hyperlipidemia, DVT, myocardial infarction at age 58 status post 4 vessel CABG, active daily marijuana use, prostate cancer diagnosed March 2019, no history of CVA nor TIA. Patient gives history that he was watching TV didn't realize he was driving trouble speaking until his son called him on the phone and he could hardly talk to him. He also had some mild confusion. Symptoms lasted until he arrived to the hospital. He states he has been sick for about 3 weeks with on and off diarrhea. His last episode was yesterday. He denies having any chest pain, no shortness of breath, no dizziness or lightheadedness. No history of obstructive sleep apnea. Patient came into [facility] emergency center for evaluation. CAT scan of the head showed mild atrophy, no acute change. EKG was in normal sinus rhythm with ST-T wave abnormality consider inferior lateral ischemia. CT of the head and neck showed no hemodynamically significant stenosis of the intracranial arteries are carotid vertebral arteries. Chest x-ray showed small pleural effusions. Echocardiogram reveals EF of 30-35%, inferior basal hypokinesia, septal hypokinesia, left atrium is moderately dilated. Cholesterol 139, LDL 79, HDL 35, triglycerides 124. Patient placed on the cardiac stepdown unit and consult in place for neurology and cardiology. Repeat troponins have been 0.139 and 0.124. 05/07: Patient has been afebrile, heart rate in the 50s and 60s, blood pressure 111/57, pulse ox 97% on 2 L nasal cannula. Sodium 136, potassium 4.4, chloride 107, CO2 23, BUN 12 and creatinine 0.59. Blood sugars running between 130 and 212. MRI of the brain revealed scattered small areas of acute infarct involving the left brain prevention of, largest involve subcortical level of the posterior left frontal lobe at the level of the polanco radiata. Background mild to moderate diffuse cerebral atrophy and mild chronic small vessel ischemic change along with chronic paranasal sinus disease. Patient subsequently underwent HANNAH that showed evidence of EF 35%. No definite evidence of thrombus in the left ventricle or left atrial appendage. Mild mitral regurgitation. No evidence of atrial septal defect or patent foramen ovale. Recommendations the patient has evidence of ischemic cardiomyopathy, cannot completely rule out cardiac source of emboli and empiric treatment with anticoagulation may be helpful. Cardiology also recommended event monitor and may need subsequently loop recorder to rule out paroxysmal atrial fibrillation. Patient started on eliquis 5 mg twice daily without aspirin. LV dysfunction persists, a Chin will need further evaluation with heart catheterization and possible AICD.. Objective - Vital Signs Vital signs: Vital Signs Temp 97.8 F 05/08/19 08:00 Pulse 59 L 05/08/19 11:29 Resp 16 05/08/19 11:29 BP 138/70 05/08/19 11:29 Pulse Ox 96 05/08/19 11:29 Intake & Output 05/07/19 05/08/19 05/08/19 18:59 06:59 18:59 Intake Total 480 0 Output Total 0 Balance 480 0 Weight 85.1 kg Intake: Oral 480 0 Output: Urine 0 Other: Voiding Method Toilet Urinal # Voids 1 1 1 # Bowel Movements 0 0 - Exam Review of Systems Constitutional: Denies anorexia, Denies chills, Denies fatigue, Denies fever, Denies lethargy, Denies malaise, Denies poor appetite, Denies weight loss Ears, nose, mouth and throat: Denies dental pain, Denies dysphagia, Denies headache, Denies nasal congestion, Denies nasal discharge, Denies sore throat, Denies vertigo Cardiovascular: Denies chest pain, Denies dyspnea on exertion, Denies lightheadedness, Denies shortness of breath, Denies syncope Respiratory: Reports cough, Denies cough with sputum, Denies dyspnea, Denies excessive sputum, Denies hemoptysis, Denies home oxygen, Denies respiratory infections, Denies wheezing Gastrointestinal: Denies abdominal pain, Denies diarrhea, Denies loss of appetite, Denies nausea, Denies vomiting Genitourinary: Denies dysuria, Denies urinary frequency, Denies urinary retention Musculoskeletal: Denies frequent falls, Denies gait dysfunction, Denies muscle weakness, Denies myalgias Integumentary: Denies pruritus, Denies rash, Denies wounds Neurological: Reports change in mentation, Reports change in speech, Denies headaches, Denies memory loss, Denies seizures, Denies syncope, Denies vertigo, Denies weakness Psychiatric: Denies anxiety, Denies depression Endocrine: Denies fatigue, Denies weight change Physical examination Gen: This is a 68-year-old male. Patient is resting in bed and appears to be comfortable and in no acute distress. HEENT: Head is atraumatic, normocephalic. Pupils equal, round. Sclerae is anicteric. NECK: Supple. No JVD. No lymphadenopathy. No thyromegaly. No carotid bruit. LUNGS: Clear to auscultation. No wheezes or rhonchi. No intercostal retractions. HEART: Regular rate and rhythm. No murmur. ABDOMEN: Soft. Bowel sounds are present. No masses. No tenderness. EXTREMITIES: No pedal edema. No calf tenderness. NEUROLOGICAL: Patient is awake, alert and oriented x3. Cranial nerves 2 through 12 are grossly intact. No neglect of the upper extremities. Touch sensation is equal bilateral extremities. - Labs CBC & Chem 7: 05/06/19 16:28 05/08/19 05:31 Labs: Abnormal Lab Results - Last 24 Hours (Table) 05/06/19 05/07/19 05/07/19 Range/Units 16:28 11:33 16:49 Sodium (137-145) mmol/L Creatinine (0.66-1.25) mg/dL Glucose (74-99) mg/dL POC Glucose (mg/dL) 110 H 212 H (75-99) mg/dL Hemoglobin A1c 6.9 H (4.0-6.0) % HDL Cholesterol (40-60) mg/dL 05/07/19 05/08/19 05/08/19 Range/Units 20:54 05:31 06:02 Sodium 136 L (137-145) mmol/L Creatinine 0.59 L (0.66-1.25) mg/dL Glucose 130 H (74-99) mg/dL POC Glucose (mg/dL) 176 H 140 H (75-99) mg/dL Hemoglobin A1c (4.0-6.0) % HDL Cholesterol 36 L (40-60) mg/dL Assessment and Plan Plan: 1. Acute cathetered areas of infarct left brain parenchyma possible cardiac source of emboli. Consult with neurology and cardiology appreciated. Continue aspirin 81 mg daily, Lipitor increased to 80 mg daily. MRI of the brain and HANNAH as above. Eliquis 5 mg twice daily, aspirin 81 mg daily, Lipitor 40 mg at bedtime. 2. History of coronary artery disease with previous CABG. Aspirin 81 mg daily, Atorvastatin 80 mg daily. Entresto one twice daily. 3. Ischemic cardiomyopathy with ejection fraction of 30-35%. Cardiology consult. Toprol XL 25 mg daily and Entresto twice daily. 4. Diabetes mellitus type 2. Novolog scale. Continue actos, glimepiride and metformin. 5. Hyperlipidemia. Atorvastin. 6. Daily marijuana use. 7. Prostate cancer diagnosed March 2019. 8. History of DVT. 9. DVT prophylaxis. Heparin subcu. 10. GI prophylaxis. Pepcid. Discharge plan: home Impression and plan of care have been directed as dictated by the signing physician. Jennifer Carvalho nurse practitioner acting as scribe for signing physician.
--- NOTE | 2019-05-08 16:40 | P.PN ---
Subjective Progress Note Date: 05/08/19 Patient denies any new focal symptoms. Denies headache or any problem with the vision. Speech is back to normal. I spoke with patient's son in detail. He mentioned that prior to arrival to the hospital, when he called the patient, he could not understand at all what dad was speaking. It was all slurred and jumbled upwards that patient's son has to hang up. He called his another brother to check on their father, who also noticed that patient had some slurred speech and was confused. No other def icits were reported. Objective - Vital Signs Vital signs: Vital Signs Temp 97.8 F 05/08/19 08:00 Pulse 60 05/08/19 15:30 Resp 16 05/08/19 12:58 BP 113/61 05/08/19 15:30 Pulse Ox 93 L 05/08/19 15:30 Intake & Output 05/07/19 05/08/19 05/08/19 18:59 06:59 18:59 Intake Total 480 465 Output Total 0 Balance 480 465 Weight 85.1 kg Intake: IV 225 Oral 480 240 Output: Urine 0 Other: Voiding Method Toilet Urinal # Voids 1 1 1 # Bowel Movements 0 0 - Exam Patient's mental status, speech and language functions are normal. Patient name and repeat very well. Face is symmetric. Visual weems full. - Labs CBC & Chem 7: 05/06/19 16:28 05/08/19 05:31 Labs: Abnormal Lab Results - Last 24 Hours (Table) 05/06/19 05/07/19 05/07/19 Range/Units 16:28 16:49 20:54 Sodium (137-145) mmol/L Creatinine (0.66-1.25) mg/dL Glucose (74-99) mg/dL POC Glucose (mg/dL) 212 H 176 H (75-99) mg/dL Hemoglobin A1c 6.9 H (4.0-6.0) % HDL Cholesterol (40-60) mg/dL 05/08/19 05/08/19 05/08/19 Range/Units 05:31 06:02 12:23 Sodium 136 L (137-145) mmol/L Creatinine 0.59 L (0.66-1.25) mg/dL Glucose 130 H (74-99) mg/dL POC Glucose (mg/dL) 140 H 131 H (75-99) mg/dL Hemoglobin A1c (4.0-6.0) % HDL Cholesterol 36 L (40-60) mg/dL Assessment and Plan Assessment: * Acute ischemic CVA, multiple small emboli, likely cardiac in origin. * Diabetes * Hypertension * History of CAD * CHF * Hyperlipidemia * THC user. Plan: * Patient underwent HANNAH, which revealed inferior and septal hypokinesia with estimated EF 35%. There is no definite evidence of thrombus in the left ventricle or left atrial appendage. There is mild mitral regurgitation noted. There is no evidence of atrial septal defect or any PFO with a [id number] shunt or diffuse atherosclerotic plaque noted in the descending thoracic aort a. Per cardiology, patient does have ischemic cardiomyopathy with impaired left-ventricular systolic function and one cannot completely exclude a possibility of thrombus from the left-ventricular dysfunction. Paroxysmal atrial fibrillation also needs to be ruled out. Patient has been started on E liquis 5 mg twice a day. No antiplatelet medications. Patient will also undergo a 30 day event monitor. Cardiology will follow patient as an outpatient. May need further testing including cardiac catheterization and possible AICD, as per their report. * MRI of the brain showed scattered small areas of acute infarct involving the left brain parenchyma, largest involving subcortical level of the posterior left frontal lobe at the level of polanco radiata. Mild to moderate diffuse cerebral atrophy and chronic small vessel ischemic change. * CTA of head and neck negative. * Hemoglobin A1c 6.9, well-controlled diabetes. Patient's total cholesterol is 146, LDL 88, HDL 36 and triglycerides 109. Continue statins. * Neurologically clear otherwise.
[2019-05-08 16:57] LABS: Glucose,Whole Blood 227 mg/dL (75-99)
[2019-05-08] MEDS: APIXABAN 5 MG TAB PO SCH ×2 (17:25→23:49)
[2019-05-08] MEDS: metFORMIN 500 MG TAB PO SCH (17:25)
[2019-05-08 20:21] LABS: Glucose,Whole Blood 231 mg/dL (75-99)
[2019-05-08] MEDS ORDERED: ATORVASTATIN 40 MG TAB PO SCH (21:00)
[2019-05-08] MEDS: GLIMEPIRIDE 2 MG TAB PO SCH (21:41)
[2019-05-09 06:14] LABS: Glucose,Whole Blood 137 mg/dL (75-99)
[2019-05-09] MEDS: INSULIN ASPART (NovoLOG) 100 UNIT/ML VIAL SQ SCH ×2 (07:05→12:34)
[2019-05-09] MEDS: metFORMIN 500 MG TAB PO SCH (08:59)
[2019-05-09] MEDS: METOPROLOL SUCCINATE (ER) 25 MG TAB.ER.24H PO SCH (08:59)
[2019-05-09] MEDS: ASPIRIN 81 MG PO SCH (09:00)
[2019-05-09] MEDS ORDERED: PIOGLITAZONE 30 MG TAB PO SCH (09:00)
[2019-05-09] MEDS: FAMOTIDINE 20 MG TAB PO SCH (09:00)
[2019-05-09] MEDS: APIXABAN 5 MG TAB PO SCH (09:00)
[2019-05-09] MEDS: GLIMEPIRIDE 2 MG TAB PO SCH (09:00)
[2019-05-09 09:11] VITALS: TEMP 97.8
[2019-05-09] MEDS: SACUBITRIL/VALSARTAN 24 MG-26 MG TABLET PO SCH (09:30)
--- NOTE | 2019-05-09 11:25 | PN ---
PROGRESS NOTE This patient is admitted with a stroke. The MRI is suggestive of possible embolic stroke. The patient underwent transesophageal echocardiogram. There was no definite evidence of any thrombus in the left atrial appendage, but in view of the patient's underlying ischemic cardiomyopathy, the cardiac source of emboli is most likely a possibility. In view of that, we will recommend to treat the patient with Eliquis. We will give him baby aspirin for 1 week. This was discussed with the patient. He remains stable. Patient can be discharged home. He will be following me as an outpatient. He will be further evaluated with an event monitor as well as stress test. MMODL / IJN: [id number] /
[2019-05-09 12:02] LABS: Glucose,Whole Blood 176 mg/dL (75-99)
[2019-05-09 12:39] VITALS: BP 138/70; PULSE 71
--- NOTE | 2019-05-09 13:17 | P.DS ---
Providers Date of admission: 05/08/19 08:50 Expected date of discharge: 05/09/19 Attending physician: Alton Iglesias MD Consults: 05/06/19 17:08 Consult Physician Urgent Consulting Provider: Kyree Gray Consult Reason/Comments: cardiac eval, review ekg and trop Do you want consulting provider notified?: Yes 05/06/19 17:10 Consult Physician Urgent Consulting Provider: Cyndee Ortiz Consult Reason/Comments: tia Do you want consulting provider notified?: Yes Primary care physician: Shiv Cordon [facility] Course: This is a 68-year-old male patient of Dr. Cordon with past medical history of diabetes mellitus type 2, hyperlipidemia, DVT, myocardial infarction at age 58 status post 4 vessel CABG, active daily marijuana use, prostate cancer diagnosed March 2019, no history of CVA nor TIA. Patient gives history that he was watching TV didn't realize he was driving trouble speaking until his son called him on the phone and he could hardly talk to him. He also had some mild confusion. Symptoms lasted until he arrived to the hospital. He states he has been sick for about 3 weeks with on and off diarrhea. His last episode was yesterday. He denies having any chest pain, no shortness of breath, no dizziness or lightheadedness. No history of obstructive sleep apnea. Patient came into [facility] emergency [facility] for evaluation. CAT scan of the head showed mild atrophy, no acute change. EKG was in normal sinus rhythm with ST-T wave abnormality consider inferior lateral ischemia. CT of the head and neck showed no hemodynamically significant stenosis of the intracranial arteries are carotid vertebral arteries. Chest x-ray showed small pleural effusions. Echocardiogram reveals EF of 30-35%, inferior basal hypokinesia, septal hypokinesia, left atrium is moderately dilated. Cholesterol 139, LDL 79, HDL 35, triglycerides 124. Patient placed on the cardiac stepdown unit and consult in place for neurology and cardiology. Repeat troponins have been 0.139 and 0.124. 05/07: Patient has been afebrile, heart rate in the 50s and 60s, blood pressure 111/57, pulse ox 97% on 2 L nasal cannula. Sodium 136, potassium 4.4, chloride 107, CO2 23, BUN 12 and creatinine 0.59. Blood sugars running between 130 and 212. MRI of the brain revealed scattered small areas of acute infarct involving the left brain prevention of, largest involve subcortical level of the posterior left frontal lobe at the level of the polanco radiata. Background mild to moderate diffuse cerebral atrophy and mild chronic small vessel ischemic change along with chronic paranasal sinus disease. Patient subsequently underwent HANNAH that showed evidence of EF 35%. No definite evidence of thrombus in the left ventricle or left atrial appendage. Mild mitral regurgitation. No evidence of atrial septal defect or patent foramen ovale. Recommendations the patient has evidence of ischemic cardiomyopathy, cannot completely rule out cardiac source of emboli and empiric treatment with anticoagulation may be helpful. Cardiology also recommended event monitor and may need subsequently loop recorder to rule out paroxysmal atrial fibrillation. Patient started on eliquis 5 mg twice daily without aspirin. If LV dysfunction persists, patient will need further evaluation with heart catheterization and possible AICD. 05/08: Patient is seen today in recheck. He denies any episodes of difficulty speaking or change in mental status. Cardiology and neurology have cleared him for discharge. Patient has been afebrile, blood pressure 138/70, pulse ox 97% on room air, heart rate 71. hall monitor normal sinus rhythm. Patient will be discharged home today in stable condition. Discharge diagnoses: 1. Acute scattered areas of ischemic CVA left brain parenchyma possible cardiac source of emboli. 2. History of coronary artery disease with previous CABG. 3. Ischemic cardiomyopathy with ejection fraction of 30-35%. 4. Diabetes mellitus type 2. AICD 6.9 5. Hyperlipidemia. 6. Daily marijuana use. 7. Prostate cancer diagnosed March 2019. 8. History of DVT. Discharge plan: home Impression and plan of care have been directed as dictated by the signing physician. Jennifer Carvalho nurse practitioner acting as scribe for signing physician. Patient Condition at Discharge: Good Plan - Discharge Summary Discharge Rx Participant: Yes New Discharge Prescriptions: New Aspirin 81 mg PO DAILY chew Apixaban [Eliquis] 5 mg PO BID #60 tab Sacubitril/Valsartan [Entresto 24 mg-26 mg Tablet] 1 each PO BID #60 tablet Metoprolol Succinate (ER) [Toprol XL] 25 mg PO DAILY #30 tab.er.24h Continue metFORMIN HCL ER [Glucophage Xr] 500 mg PO BID Pioglitazone [Actos] 30 mg PO DAILY Glimepiride [Amaryl] 2 mg PO BID Atorvastatin [Lipitor] 40 mg PO HS Discharge Medication List Atorvastatin [Lipitor] 40 mg PO HS 05/06/19 [History] Glimepiride [Amaryl] 2 mg PO BID 05/06/19 [History] Pioglitazone [Actos] 30 mg PO DAILY 05/06/19 [History] metFORMIN HCL ER [Glucophage Xr] 500 mg PO BID 05/06/19 [History] Apixaban [Eliquis] 5 mg PO BID #60 tab 05/09/19 [Rx] Aspirin 81 mg PO DAILY chew 05/09/19 [Rx] Metoprolol Succinate (ER) [Toprol XL] 25 mg PO DAILY #30 tab.er.24h 05/09/19 [Rx] Sacubitril/Valsartan [Entresto 24 mg-26 mg Tablet] 1 each PO BID #60 tablet 05/09/19 [Rx] Follow up Appointment(s)/Referral(s): Shiv Cordon MD [Primary Care Provider] - 1 Week Kyree Gray MD [STAFF PHYSICIAN] - 05/22/19 10:00 am Activity/Diet/Wound Care/Special Instructions: coupons applied for pts Eliquis and Entresto, no copay. Pts copay for Eliquis will be $40/mo and entresto will be $250. Discharge Disposition: HOME SELF-CARE
--- NOTE | 2019-05-09 15:08 | P.PN ---
Subjective Progress Note Date: 05/09/19 Patient denies any new focal symptoms. Denies headache or any problem with the vision. Speech is back to normal. No numbness tingling. I spoke with patient's son in detail. He mentioned that prior to arrival to the hospital, when he called the patient, he could not understand at all what dad was speaking. It was all slurred and jumbled upwards that patient's son has to hang up. He called his another brother to check on their father, who also noticed that patient had some slurred speech and was confused. No other deficits were reported. Objective - Vital Signs Vital signs: Vital Signs Temp 97.8 F 05/09/19 08:00 Pulse 71 05/09/19 12:00 Resp 16 05/09/19 12:00 BP 138/70 05/09/19 12:00 Pulse Ox 97 05/09/19 12:00 Intake & Output 05/08/19 05/09/19 05/09/19 18:59 06:59 18:59 Intake Total 465 720 Balance 465 720 Weight 83.9 kg Intake: IV 225 Oral 240 720 Other: # Voids 1 2 2 - Exam Patient's mental status, speech and language functions are normal. Patient name and repeat very well. Face is symmetric. Visual weems full. No ataxia for [id number] testing. Sensations are equal with no neglect. - Labs CBC & Chem 7: 05/06/19 16:28 05/08/19 05:31 Labs: Abnormal Lab Results - Last 24 Hours (Table) 05/08/19 05/08/19 05/09/19 Range/Units 16:55 20:16 06:12 POC Glucose (mg/dL) 227 H 231 H 137 H (75-99) mg/dL 05/09/19 Range/Units 11:59 POC Glucose (mg/dL) 176 H (75-99) mg/dL Assessment and Plan Assessment: * Acute ischemic CVA, multiple small emboli, likely cardiac in origin. * Diabetes * Hypertension * History of CAD * CHF * Hyperlipidemia * THC user. Plan: * Patient doing well on Eliquis 5 mg twice a day. No further TIAs noted. * HANNAH, which revealed inferior and septal hypokinesia with estimated EF 35%. There is no definite evidence of thrombus in the left ventricle or left atrial appendage. There is mild mitral regurgitation noted. There is no evidence of atrial septal defect or any PFO with a [id number] shunt or diffuse atherosclerotic plaque noted in the descending thoracic aorta. Per cardiology, patient does have ischemic cardiomyopathy with impaired left- ventricular systolic function and one cannot completely exclude a possibility of thrombus from the left-ventricular dysfunction. Paroxysmal atrial fibrillation also needs to be ruled out. Patient has been started on Eliquis 5 mg twice a day. No antiplatelet medications. Patient will also undergo a 30 day event monitor. Cardiology will follow patient as an outpatient. May need further testing including cardiac catheterization and possible AICD, as per their report. * MRI of the brain showed scattered small areas of acute infarct involving the left brain parenchyma, largest involving subcortical level of the posterior left frontal lobe at the level of polanco radiata. Mild to moderate diffuse cerebral atrophy and chronic small vessel ischemic change. * CTA of head and neck negative. * Hemoglobin A1c 6.9, well-controlled diabetes. Patient's total cholesterol is 146, LDL 88, HDL 36 and triglycerides 109. Continue statins. * Neurologically clear otherwise.
--- NOTE | 2019-05-13 13:39 | CDI ---
Documentation Clarification Form Date: 05/13/19 From: Blanca Camara Phone: If you have a question about this query, please contact Connie Macias, Labor Delivery Rn at [phone] between 8am and 5pm. Admit Date: 05/08/19 Discharge Date: 05/09/19 Patient Name: GUS NOLAN Visit Number: [id number] ATTENTION: The Clinical Documentation Specialists (CDI) and [facility] Coding Staff appreciate your assistance in clarifying documentation. Please respond to the clarification below the line at the bottom and electronically sign. The CDI & [facility] Coding staff will review the response and follow-up if needed. Please note: Queries are made part of the Legal Health Record. If you have any questions, please contact the author of this message via ITS. Dear Dr. Bass (This was query to Dr. Gray who has retired. Dr. Pike asked us to route it to you) CHF/heart failure is documented in the progress notes and a consult. History/Risk Factors: Ischemic CVA left brain, possible cardiac source of emboli, recent prostate ca, DM, hyperlipidemia, old [place], HTN Clinical Indicators: ischemic cardiomyopathy VS/Pulse OX: T-97.8, P-75, R-18, BP-161/80, O2-99 BNP: None Echo results: left ventricular systolic function is moderately-severely impaired w EF 30-35% HANNAH results: evidence fo inferior and septal hypokinesia w EF 35%. Chest X Ray: Small pleural effusions are improved compared to old exam. No heart failure seen Treatment: Entresto 24 mg-26mg 1 PO BID started In your professional opinion, can you please clarify the acuity and type of CHF if known? Type Systolic Heart Failure Diastolic Heart Failure Systolic & Diastolic Heart Failure Acuity Acute Chronic Acute on Chronic Heart Failure Unable to Determine Other, please specify MTDD
--- NOTE | 2019-06-25 09:06 | CDI ---
Documentation Clarification Form Date: 05/13/19 From: Blanca Camara Phone: If you have a question about this query, please contact Connie Macias, Craniologist at [phone] between 8am and 5pm. Admit Date: 05/08/19 Discharge Date: 05/09/19 Patient Name: GUS NOLAN Visit Number: [id number] ATTENTION: The Clinical Documentation Specialists (CDI) and [facility] Coding Staff appreciate your assistance in clarifying documentation. Please respond to the clarification below the line at the bottom and electronically sign. The CDI & [facility] Coding staff will review the response and follow-up if needed. Please note: Queries are made part of the Legal Health Record. If you have any questions, please contact the author of this message via ITS. Dear Dr. Jayme Ruby has asked me to send to you since Dr Gray has retired. Please kindly respond. CHF/heart failure is documented in the PNs and a consult. History/Risk Factors: Ischemic CVA left brain parenchymma possibe cardiac source of emboli, recent prostate ca, DM, hyperlipidemia, old CT, HTN Clinical Indicators: ischemic cardiomyopathy VS/Pulse OX: T-97.8, P-75, R-18, BP-161/80, O2-99 BNP: None Echo results: left ventricular systolic function is moderately-severely impaired w EF 30-35% HANNAH results: evidence fo inferior and septal hypokinesia w EF 35%. Chest X Ray: Small pleural effusions are improved compared to old exam. No heart failure seen Treatment: Entresto 24 mg-26mg 1 PO BID started In your professional opinion, can you please clarify the acuity and type of CHF if known? Type Systolic Heart Failure Diastolic Heart Failure Systolic & Diastolic Heart Failure Acuity Acute Chronic Acute on Chronic Heart Failure Unable to Determine Other, please specify SYSTOLIC unable to determine acuity of HF pl send to CONSTRUCTION CONTROLLER who dictated for him MTDD
--- NOTE | 2019-06-27 10:10 | CDI ---
Documentation Clarification Form Date: 05/13/19 From: Blanca Camara Phone: If you have a question about this query, please contact Connie Macias, Liquefied Natural [employer] Plant Operator at [phone] between 8am and 5pm. Admit Date: 05/08/19 Discharge Date: 05/09/19 Patient Name: GUS NOLAN Visit Number: [id number] ATTENTION: The Clinical Documentation Specialists (CDI) and [facility] Coding Staff appreciate your assistance in clarifying documentation. Please respond to the clarification below the line at the bottom and electronically sign. The CDI & [facility] Coding staff will review the response and follow-up if needed. Please note: Queries are made part of the Legal Health Record. If you have any questions, please contact the author of this message via ITS. Dear Dr. Jayme Bass, Dr Ruby has asked me to send to you since Dr Gray has retired. Please kindly respond. CHF/heart failure is documented in the PNs and a consult. History/Risk Factors: Ischemic CVA left brain parenchymma possibe cardiac source of emboli, recent prostate ca, DM, hyperlipidemia, old [place], HTN Clinical Indicators: ischemic cardiomyopathy VS/Pulse OX: T-97.8, P-75, R-18, BP-161/80, O2-99 BNP: None Echo results: left ventricular systolic function is moderately-severely impaired w EF 30-35% HANNAH results: evidence fo inferior and septal hypokinesia w EF 35%. Chest X Ray: Small pleural effusions are improved compared to old exam. No heart failure seen Treatment: Entresto 24 mg-26mg 1 PO BID started In your professional opinion, can you please clarify the acuity and type of CHF if known? Type Systolic Heart Failure Diastolic Heart Failure Systolic & Diastolic Heart Failure Acuity Acute Chronic Acute on Chronic Heart Failure Unable to Determine Other, please specify MTDD
== END 2019-05-09 15:25 | disposition home or self-care (01) | DRG 65 ==
LOC: EC 15:55 → 3SCARD 17:09 → OBSVTOIN 05-08 08:50
PROVIDERS: ADMIT Internal Medicine; ATTEND Internal Medicine
PROC: B246ZZ4 Ultrasonography of Right and Left Heart, Transesophageal (ICD-10-PCS; principal; 2019-05-08 11:30)
DX: I63.40 Cerebral infarction due to embolism of unspecified cerebral artery (principal); I47.2 Ventricular tachycardia; C61 Malignant neoplasm of prostate; I11.0 Hypertensive heart disease with heart failure; I50.9 Heart failure, unspecified; E11.9 Type 2 diabetes mellitus without complications; R29.701 NIHSS score 1; R47.81 Slurred speech; R40.2362 Coma scale, best motor response, obeys commands, at arrival to emergency department; R40.2142 Coma scale, eyes open, spontaneous, at arrival to emergency department; R40.2252 Coma scale, best verbal response, oriented, at arrival to emergency department; I25.10 Atherosclerotic heart disease of native coronary artery without angina pectoris; I25.5 Ischemic cardiomyopathy; E78.5 Hyperlipidemia, unspecified; I25.2 Old myocardial infarction; J45.909 Unspecified asthma, uncomplicated; R19.7 Diarrhea, unspecified; R79.89 Other specified abnormal findings of blood chemistry; Z79.84 Long term (current) use of oral hypoglycemic drugs; Z87.891 Personal history of nicotine dependence; Z79.899 Other long term (current) drug therapy; Z86.718 Personal history of other venous thrombosis and embolism; Z86.73 Personal history of transient ischemic attack (TIA), and cerebral infarction without residual deficits; Z95.1 Presence of aortocoronary bypass graft; Z98.42 Cataract extraction status, left eye; Z98.41 Cataract extraction status, right eye; Z98.890 Other specified postprocedural states; Z82.49 Family history of ischemic heart disease and other diseases of the circulatory system; Z80.3 Family history of malignant neoplasm of breast
CPT/HCPCS: 36415; 70450; 70496; 70498; 70551; 71046; 80048; 80053; 80061; 83036; 84484; 85025; 85610; 85730; 93005; 93306; 93312; 93320; 93325; 99285

== ENCOUNTER → 2019-06-27 | Outpatient (CLI) | payer MEDICARE | END | disposition home or self-care (01) | LOC: LABWHC1 09:36 | PROVIDERS: ATTEND Radiology Radiation Oncology | DX: C61 Malignant neoplasm of prostate (principal) | CPT/HCPCS: 36415; 84153 ==

== ENCOUNTER → 2019-09-24 | Outpatient (CLI) | payer MEDICARE ==
[2019-09-24 12:13] LABS: HGB 11.6 gm/dL (13.0-17.5); MCH 30.4 pg (25.0-35.0); MCHC 31.5 g/dL (31.0-37.0); MCV 96.7 fL (80.0-100.0); Mean Platelet Volume 8.1; Platelet Count 176 k/uL (150-450); RBC 3.83 m/uL (4.30-5.90); RDW 14.5 % (11.5-15.5); WBC 8.8 k/uL (3.8-10.6)
[2019-09-24 12:20] LABS: African American GFR (CKD) >90 (>60 ml/min/1.73 sqM); Anion Gap 3 mmol/L; Blood Urea Nitrogen 22 mg/dL (9-20); Carbon Dioxide 30 mmol/L (22-30); Chloride 105 mmol/L (98-107); Non-African American GFR(CKD) >90 (>60 ml/min/1.73 sqM); Potassium 5.1 mmol/L (3.5-5.1); Sodium 138 mmol/L (137-145)
== END | disposition home or self-care (01) ==
LOC: LABPAT 10:46
PROVIDERS: ATTEND Internal Medicine Interventional Cardiology
DX: Z01.818 Encounter for other preprocedural examination (principal); I48.0 Paroxysmal atrial fibrillation
CPT/HCPCS: 36415; 80051; 82565; 84520; 85027

== ENCOUNTER → 2020-03-11 | Outpatient (CLI) | payer MEDICARE | END | disposition home or self-care (01) | LOC: LABWHC1 09:41 | PROVIDERS: ATTEND Radiology Radiation Oncology | DX: C61 Malignant neoplasm of prostate (principal); Z79.818 Long term (current) use of other agents affecting estrogen receptors and estrogen levels | CPT/HCPCS: 36415; 84153 ==

== ENCOUNTER → 2020-09-11 | Outpatient (CLI) | payer MEDICARE | END | disposition home or self-care (01) | LOC: LABWHC1 09:16 | PROVIDERS: ATTEND Radiology Radiation Oncology | DX: C61 Malignant neoplasm of prostate (principal); Z92.3 Personal history of irradiation; Z79.818 Long term (current) use of other agents affecting estrogen receptors and estrogen levels | CPT/HCPCS: 36415; 84153 ==

== ENCOUNTER → 2021-01-18 | Outpatient (CLI) | payer MEDICARE | END | disposition home or self-care (01) | LOC: LABWHC1 15:05 | PROVIDERS: ATTEND Family Medicine | DX: E11.9 Type 2 diabetes mellitus without complications (principal) | CPT/HCPCS: 36415; 83036 ==

== ENCOUNTER → 2021-01-21 | Outpatient (CLI) | payer MEDICARE ==
[2021-01-21 19:41] LABS: African American GFR (CKD) 85.9 (60.0-200.0); Anion Gap 18.4 mmol/L (10.00-18.00); BUN/Creat Ratio 28.14 Ratio (12.00-20.00); Blood Urea Nitrogen 28.7 mg/dL (9.0-27.0); Calcium 9.3 mg/dL (8.7-10.3); Carbon Dioxide 23.5 mmol/L (20.0-27.5); Non-African American GFR(CKD) 74.1 (60.0-200.0)
== END | disposition home or self-care (01) ==
LOC: LABWHC1 11:05
PROVIDERS: ATTEND Nurse Practitioner
DX: I50.20 Unspecified systolic (congestive) heart failure (principal)
CPT/HCPCS: 36415; 80048

== ENCOUNTER → 2021-03-12 | Outpatient (CLI) | payer MEDICARE | END | disposition home or self-care (01) | LOC: LABWHC1 09:49 | PROVIDERS: ATTEND Radiology Radiation Oncology | DX: Z08 Encounter for follow-up examination after completed treatment for malignant neoplasm (principal); Z85.46 Personal history of malignant neoplasm of prostate; Z92.3 Personal history of irradiation; Z79.818 Long term (current) use of other agents affecting estrogen receptors and estrogen levels | CPT/HCPCS: 36415; 84153 ==

== ENCOUNTER → 2021-03-26 | Outpatient (CLI) | payer MEDICARE ==
[2021-03-26 15:20] LABS: HCT 41.5 % (39.6-50.0); HGB 13.1 g/dL (13.0-17.0); MCH 30.4 pg (27.0-32.0); MCHC 31.6 g/dL (32.0-37.0); MCV 96.3 fL (80.0-97.0); Mean Platelet Volume 11.1 fL (9.5-12.2); Platelet Count 235 X 10*3/uL (140-440); RBC 4.31 X 10*6/uL (4.40-5.60); RDW 15.9 % (11.5-14.5); WBC 7.49 X 10*3/uL (4.50-10.00)
[2021-03-26 16:11] LABS: African American GFR (CKD) 94.2 (60.0-200.0); Anion Gap 12.7 mmol/L (10.00-18.00); Carbon Dioxide 24.2 mmol/L (20.0-27.5); Non-African American GFR(CKD) 81.3 (60.0-200.0); Potassium 5.4 mmol/L (3.5-5.5)
== END | disposition home or self-care (01) ==
LOC: LABPAT 10:25
PROVIDERS: ATTEND Internal Medicine Interventional Cardiology
DX: Z01.812 Encounter for preprocedural laboratory examination (principal); R94.39 Abnormal result of other cardiovascular function study
CPT/HCPCS: 80051; 82565; 84520; 85027; 36415; U0003; C9803; U0005

== ENCOUNTER → 2021-03-29 | Day surgery (SDC) | payer MEDICARE ==
[~2021-03-29] MED LIST: ALPRAZolam 0.25 MG TAB PO PRN; ALPRAZolam 0.5 MG TAB PO PRN; ASPIRIN 325 MG TAB ONE; ASPIRIN 325 MG TAB PO ONE; ATORVASTATIN 80 MG TAB PO ONE; CLOPIDOGREL 75 MG TAB ONE; CLOPIDOGREL 75 MG TAB PO ONE; HEPARIN SODIUM 1,000 UN/ML (10ML VL) ONE; HEPARIN SODIUM,PORCINE 10,000 UNIT in SODIUM CHLORIDE 0.9% 1,000 ML IRRIGATION PRN; HEPARIN SODIUM,PORCINE 2,500 UNIT in SODIUM CHLORIDE 0.9% 250 ML IRRIGATION PRN; IOPAMIDOL-370 100ML BTL INJ ONE; LIDOCAINE 1% INJ 10MG/ML (20 ML MDV) ONE; LIDOCAINE 1% INJ 10MG/ML (20 ML MDV) SQ ONE; MIDAZOLAM 2 MG/2 ML VIAL IV ONE; NITROGLYCERIN 1000MCG/10ML SYRINGE INTRACORON ONE; NITROGLYCERIN SL TABS 0.4 MG TAB SUBLINGUAL PRN; SODIUM CHLORIDE 0.9% 1,000 ML IV SCH; SODIUM CHLORIDE 0.9% 1,000 ML in EMPTY BAG 1 BAG IV SCH; VERAPAMIL 2.5 MG/ML 2 ML AMP ONE; VERAPAMIL SYRINGE (5 MG/10 ML) INTRAARTER ONE
[2021-03-29 07:01] LABS: Glucose,Whole Blood 164 mg/dL (75-99)
[2021-03-29 07:05] VITALS: TEMP 978
[2021-03-29] MEDS: HEPARIN SODIUM 1,000 UN/ML (10ML VL) IV ONE ×2 (08:00→09:01)
[2021-03-29 14:44] VITALS: BP 139/65
[2021-03-29 16:21] VITALS: PULSE 81; RESP 16
--- NOTE | 2021-03-29 18:24 | PTCA ---
PERCUTANEOUSTRANS CORORONARY ANGIOGRAPHY DATE OF SERVICE: 03/29/2021 PROCEDURE: Percutaneous transluminal coronary angioplasty and stenting of ostial and proximal ramus intermedius vessel. PERFORMED BY: Dr. Carlton Mchugh. Moderate conscious sedation time was 71 minutes. Patient was administered Versed. Oxygen saturation, hemodynamics and EKG were monitored closely. CLINICAL INFORMATION: Mr. Joseph Sampson is a patient with a history of CAD, ischemic cardiomyopathy, prior bypass surgery performed in 2008 with a DHALIWAL to LAD and a free radial artery graft to the PDA branch of RCA and two separate vein grafts to the two branches of circumflex/ramus. Cardiac cath performed by dc in January 2021 revealed that the vein grafts were occluded, free radial artery graft was also diffusely diseased, and DHALIWAL was the only patent one. He was advised PCI of ramus vessel, which had a 95% lesion as it came off from the left main. He was advised procedure from right radial approach and brought in for the procedure electively. PROCEDURE NOTE: Under local anesthesia and strict aseptic precautions, a 6-Nepalese introducer was placed in the right radial artery. I used initially a JL4 guide catheter but had difficulty with guide support, and switched over to an XB 3.5 guide catheter. With this I had decent guide support. A run-through wire was used to cross the lesion. Wire was kept in the distal aspect of the ramus. I performed predilatation with a 2.5 caliber 20 mm long NC Trek balloon. I was having difficulty getting to the distal aspect of the lesion. I used a new fresh balloon. With this I was able to dilate the distal aspect. The entire lesion was dilated with a 2.5 caliber NC Trek balloon at 12 to 13 atmospheres. I then deployed a 28 mm long Xience stent, and this stent was deployed before the origin of the ramus into the proximal aspect of the ramus. Following this, I used another 8 mm long 3.0 caliber Xience stent and deployed this distally. Both were 3.0 caliber Xience stents. Excellent angiographic result was achieved without complication. Patient received intravenous heparin and ACT was 305. Excellent result was achieved. The sheath was taken out and TR band applied as per protocol and he was sent to the room in a stable condition. Details were discussed with the patient as well as his son. He was given 600 mg of Plavix. He will be discharged later on today if he remains stable. MMODL / IJN: [id number] /
== END ==
LOC: CATHCVL 06:09
PROVIDERS: ATTEND Internal Medicine Interventional Cardiology
DX: I25.810 Atherosclerosis of coronary artery bypass graft(s) without angina pectoris (principal); I25.10 Atherosclerotic heart disease of native coronary artery without angina pectoris; I25.82 Chronic total occlusion of coronary artery; I10 Essential (primary) hypertension; E13.8 Other specified diabetes mellitus with unspecified complications; E78.5 Hyperlipidemia, unspecified; Z72.0 Tobacco use; I25.5 Ischemic cardiomyopathy; E78.00 Pure hypercholesterolemia, unspecified; Z79.84 Long term (current) use of oral hypoglycemic drugs; Z79.82 Long term (current) use of aspirin; Z79.899 Other long term (current) drug therapy
CPT/HCPCS: C9600; C1769 ×4; C1887 ×2; C1894; C1725; C1874; J2250; J2001; J1644; Q9967

== ENCOUNTER → 2021-09-13 | Outpatient (CLI) | payer MEDICARE | END | disposition home or self-care (01) | LOC: LABWHC1 10:44 | PROVIDERS: ATTEND Radiology Radiation Oncology | DX: Z08 Encounter for follow-up examination after completed treatment for malignant neoplasm (principal); Z85.46 Personal history of malignant neoplasm of prostate; Z92.3 Personal history of irradiation; Z79.818 Long term (current) use of other agents affecting estrogen receptors and estrogen levels | CPT/HCPCS: 36415; 84153 ==

== ENCOUNTER → 2021-10-05 | Outpatient (CLI) | payer MEDICARE ==
[2021-10-05 19:02] LABS: African American GFR (CKD) 100.3 (60.0-200.0); Anion Gap 10.5 mmol/L (10.00-18.00); BUN/Creat Ratio 33.94 Ratio (12.00-20.00); Blood Urea Nitrogen 29.8 mg/dL (9.0-27.0); Calcium 9.4 mg/dL (8.7-10.3); Non-African American GFR(CKD) 86.5 (60.0-200.0)
== END | disposition home or self-care (01) ==
LOC: LABWHC1 11:19
PROVIDERS: ATTEND Internal Medicine Interventional Cardiology
DX: I50.20 Unspecified systolic (congestive) heart failure (principal)
CPT/HCPCS: 36415; 80048